=== PATIENT | male | born 1970 | race Caucasian/White ===

== ENCOUNTER 2017-03-05 23:26 | Observation (INO) | payer BC ==
[~2017-03-05] VITALS: Ht 180.3 cm; Wt 97.0 kg
--- NOTE | ~2017-03-05 | ECH ---
Transthoracic Echocardiography Report (TTE) Demographics Patient Name SID BROWNING Date of Study 03/06/2017 Patient Number [id number] Visit Number [id number] Date of 1970 Room Number 424 Accession Number [id number] Gender Male Age 47 year(s) Referring King Aaron Colin MD Microphone Operator Frida Rush [facility] Physician Selena Devlin MD Physician Interpreting King Aaron Colin MD [facility] Aide Physician Supervising Ordering Physician King Aaron Colin MD, MD/P Nurse Stress Audio Visual Project Manager Conclusions Summary Technically adequate exam. The estimated left ventricular ejection fraction is 65%. Mild to moderate left ventricular hypertrophy. Diastolic assessment reveals Grade I diastolic dysfunction. Procedure Type of Study TTE procedure:Echo Complete SF. Procedure Date Date: 03/06/2017 Start: 12:34 PM Technical Quality: Adequate visualization Indications:Chest pain and Coronary artery disease. Appropriate Use Criteria: 9 Height: 71 inches Weight: 213 pounds BSA: 2.17 m Rhythm: Within normal limits HR: 65 bpm BP: 119/74 mmHg Allergies - Codiene. M-Mode/2D Measurements LV Diastolic Dimension: 4.54 cm LV Systolic Dimension: 3.09 cm LV Septum Diastolic: 1.54 cm LV PW Diastolic: 1.23 cm AO Root Dimension: 2.85 cm Cardiac Output: 4.97 l/min LA Dimension: 3.92 cm Cardiac Index: 2.29 l/min*m LA volume index: 18 ml/m LVOT: 2.03 cm RV Base: 3.1 cm LVOT VTI: 23.62 cm RV Mid: 1.6 cm LV Stroke volume: 76.41 ml RV Length: 6.6 cm LV Stroke volume index: 35.21 ml/m TAPSE: 1.8 cm Doppler Measurements AV Peak Velocity: 1.4 m/s MV Peak E-Wave: 0.7 m/s AV Peak Gradient: 7.84 mmHg MV Peak A-Wave: 0.72 m/s AV Mean Gradient: 3.68 mmHg MV E/A Ratio: 0.97 LVOT Peak Velocity: 1.32 m/s MV P1/2t: 47.1 msec AV Area (Continuity):2.9 cm MV Deceleration Time: 178.2 msec MV Area (PHT): 4.67 cm PV Peak Velocity: 1.32 m/s PV Peak Gradient: 6.97 mmHg RA Area: 15.08 cm Findings Left Ventricle The left ventricle is normal in size . Mild to moderate left ventricular hypertrophy. Diastolic assessment reveals Grade I diastolic dysfunction. Right Ventricle Normal right ventricle structure and function. Left Atrium Normal left atrial size. Right Atrium Normal right atrial size. Mitral Valve Normal mitral valve structure and function. Aortic Valve Normal aortic valve structure and function. Tricuspid Valve Normal tricuspid valve structure and function. Pulmonic Valve Normal pulmonic valve structure and function. Pericardial Effusion No evidence of pericardial effusion. Miscellaneous Visualized portions of the aortic root and ascending aorta appear normal in size. Pleural Effusion No evidence of pleural effusion. Signature
--- NOTE | ~2017-03-05 | FD ---
ADMIT: 03/06/2017 RM/LOC: 424 [facility] MR#: [id number] [address] [address] SID BROWNING [address] [place] [address] Final Diagnosis SEX: M AGE: 47 : 1970 ADMISSION DATE: 03/06/2017 DISCHARGE DATE: 03/06/2017 FINAL DIAGNOSES: 1. Chest pain. 2. Coronary artery disease. 3. Gastroesophageal reflux disease. 4. Hypertension. 5. Hyperlipidemia. 6. Pre-diabetes. Dar Walters MD/ vdg JOB #: [id number] CC: Dar Walters MD, Attending Physician Ellie Xavier MD, Family Physician
[~2017-03-05 23:26] MED LIST: ASA CHILDREN'S81 MG PO; HABITROL DPS21 MG TD; LIPITOR DPS40 MG PO; LOPRESSOR DPS12.5 MG PO; NITROSTAT0.4 MG SL; PLAVIX75 MG PO; TYLENOL DPS325 MG PO
--- NOTE | 2017-03-06 16:12 | HP ---
ADMIT: 03/06/2017 RM/LOC: 424 [facility] MR#: [id number] [id number] [facility] [address] [place] [id number] SID BROWNING [address] [place] [address] History and Physical SEX: M AGE: 47 : 1970 DATE OF SERVICE: CHIEF COMPLAINT: Chest pain. HISTORY OF PRESENT ILLNESS: A 47-year-old male with chest pressure and stabbing pressure intermittently. Similar to the pain that he has had in the past with previous heart catheterization. This is not the same as his most recent non-STEMI though. That was much more pronounced pressures as someone was standing on him. He does smoke tobacco. He has had multiple stents back in August of 2015 and then May of 2016. He has had increasingly more severe chest pain. This is separate than his GERD symptoms and it is not reproducible by pressure on his chest by pushing. Therefore, he came to the ER, admitted for chest pain rule out. Chest pain is now resolved. Awaiting Cardiology consult for further direction. PAST MEDICAL HISTORY: 1. Hypertension. 2. Hyperlipidemia. 3. Coronary artery disease. MEDICATIONS: 1. Lipitor. 2. Metoprolol. 3. Plavix. 4. Aspirin. ALLERGIES: NO KNOWN MEDICAL ALLERGIES. FAMILY HISTORY: Positive coronary artery disease in multiple family members. SOCIAL HISTORY: Lives in [place]. He smokes tobacco. He does not drink or do drugs. He works. PHYSICAL EXAMINATION: VITAL SIGNS: Blood pressure 118/74, pulse 72, respiratory rate is 16, temperature is 96.7. GENERAL: Alert and oriented x3, in no acute distress. HEENT: Normocephalic and atraumatic. Extraocular muscles intact. Pupils equally round and responsive to light. No nasal discharge. NECK: Supple. HEART: Irregularly irregular rhythm and rate. LUNGS: Clear, but distant. ABDOMEN: Soft, nontender. EXTREMITIES: No clubbing or cyanosis. LABORATORY DATA: Sodium 141, potassium is 4, chloride is 106, bicarb is 26, BUN is 18, creatinine is 1, glucose 193, calcium is 8.3, AST is 38, ALT is 77, total protein 6.7, albumin is 3.7, alkaline phosphatase 118, bilirubin is 0.7, ADMIT: 03/06/2017 RM/LOC: 424 [facility] MR#: [id number] [address] [address] SID BROWNING [address] [place] [address] History and Physical SEX: M AGE: 47 : 1970 LDL of 31. Troponin continues to be negative less than 0.015. Hemoglobin is 15.4, white blood cells are 7, platelets 173. A1c is 6.3. ASSESSMENT AND PLAN: 1. Unstable angina. 2. Hypertension. 3. Hyperlipidemia. 4. Coronary artery disease. 5. Increased creatine phosphokinase. 6. Prediabetes. This is a 47-year-old male with cardiovascular risk factors with unstable angina. We will maintain him on n.p.o. status. Go ahead and get a repeat set of cardiac enzymes at noon. Cardiology is consulted and will direct further evaluation on this patient, stress test versus cath versus echo versus observation and medication adjustment. Also, increase his IV fluids little bit secondary to his increased CPK as well as we will go ahead and get some diabetic education secondary to his prediabetes. I discussed this plan with the patient, who expressed understanding, was in agreement and had no further questions. Dar Walters MD/ lele JOB #: [id number] CC: Dar Walters MD, Attending Physician Ellie Xavier MD, Family Physician
--- NOTE | 2017-03-06 22:59 | ER ---
ADMIT: 03/06/2017 RM/LOC: 424 [facility] MR#: [id number] [address] [facility] [address] [place], [place] [address] SID BROWNING [address] [place] [address] Emergency Room Report SEX: M AGE: 47 : 1970 DATE: 03/05/2017 TIME: 2325 Please refer to my T-sheet for complete H and P. HISTORY OF PRESENT ILLNESS: Briefly, the patient is a 47-year-old, who has been having chest pain for the last 3 days, more on than off. He has been on and off for the last 2 weeks. He has a known history of coronary disease. He has had 4 stents placed and multiple caths, he said about 6-7, the last was in December. Smokes half pack a day. Continues to smoke. The pain is a pressure across his chest, 5/10 when he arrived in the ER. PHYSICAL EXAMINATION: VITAL SIGNS: Stable. HEENT: Grossly normal. LUNGS: Clear. HEART: Regular. ABDOMEN: Soft. SKIN: No rash. EMERGENCY DEPARTMENT COURSE: EKG was sinus rhythm, nonspecific changes, rate 78. Chest x-ray negative. CBC normal, chemistries normal except potassium 3.6, glucose 133. His CK was 666. CK-MB 9.2, troponin was negative at this time. He was given aspirin and nitroglycerin, his pain was gone. I talked to Dr. Walters, will admit to the hospital. ASSESSMENT: 1. Chest pain/unstable angina. 2. Increased CK, CK-MB. 3. Known coronary artery disease. PLAN: Admit to the hospital. Nic Lynch MD/ lele JOB #: [id number] CC: Dar Walters MD, Attending Physician Ellie Xavier MD, Family Physician
[2017-03-07] MEDS ORDERED: PRILOSEC DPS20 MG PO (19:50)
[2017-03-07] MEDS ORDERED: NAPROSYN DPS500 MG PO (19:50)
--- NOTE | 2017-03-11 14:07 | CO ---
ADMIT: 03/06/2017 RM/LOC: 424 [facility] MR#: [id number] [id number] [facility] [address] [place] [id number] SID BROWNING [address] [place] [address] Consultation SEX: M AGE: 47 : 1970 DATE OF CONSULTATION: 03/06/2017 ATTENDING PHYSICIAN: Dar Walters MD CONSULTING PHYSICIAN: Aaron Garcia MD REASON FOR CONSULTATION: Chest pain. JOVANNY Schmidt dictating for Dr. Garcia. HISTORY OF PRESENT ILLNESS: The patient is a pleasant 47-year-old male, who I had the opportunity to consult for Cardiology regarding his chest pain. The patient has a personal history of coronary artery disease. He is status post CABG with four stent placements. He has a history of tobacco abuse, dyslipidemia, and hypertension. The patient states that he has had chest discomfort going on and off for the last two weeks, but it usually goes away within an hour. The patient states this last episode started three days ago, so he called his blood tester in [place], Dr. Luther and asked for some advice of what he should do. Dr. Luther informed him to drink some water and see if he had any relief with the chest discomfort. On Thursday, the chest discomfort slowly got worse, but he stuck it out and was hoping it would go away. The patient states that yesterday he went in to work and worked all day. 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 He admits after working all day the discomfort did not go away which made him nervous. He then decided to cancel his appointment with Dr. Luther and went into the ER instead. The patient states that he rated the pain as 6/10. He said that the pain radiated to his left arm in between his shoulder blades. Associated symptoms included shortness of breath and dizziness. He said he did not get any relief until he arrived in the emergency room when they gave him a cocktail of one nitroglycerin, four low- dose aspirin, Tylenol, and Mylanta. He admits that he is not sure which one gave him relief, but he got some relief out of that cocktail. The patient's cardiac enzymes were negative x3. His EKG showed nonspecific changes but a sinus rhythm. The patient admits that he has never had anything like this in the past, but the pain or discomfort is similar with a few new symptoms including shortness of breath and dizziness. PAST MEDICAL HISTORY: Significant for: 1. Hypertension. 2. Dyslipidemia. 3. Coronary artery disease, status post PCI with four stents placed. 4. Tobacco abuse. PAST SURGICAL HISTORY: Significant for: 1. PCI with four stents placed. 2. Appendectomy. 3. Elbow surgery. 4. Carpal tunnel release. ADMIT: 03/06/2017 RM/LOC: 424 [facility] MR#: [id number] [address] [place] [phone] SID BROWNING [address] [place] [address] Consultation SEX: M AGE: 47 : 1970 FAMILY HISTORY: Dad of a myocardial infarction in his early 50s. Brother of lymph node cancer around 59, but he also had stents and a pacemaker. Mother is living and she is 60 years old with type 2 diabetes. The patient denies a family history of stroke. SOCIAL HISTORY: The patient currently resides in [place], [place]. He is currently to his for 19 years. 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 His diet is a low-sodium diet. He consumes 8 to 10 cups of coffee, and three to four 20 ounce soda's per day. The patient also admits to drinking 1 to 2 alcoholic beverages per month. He has a 15-pack year smoking history, and he denies drug use. ALLERGIES: NO KNOWN DRUG ALLERGIES. MEDICATIONS: Home medications include: 1. Aspirin 81 mg p.o. daily. 2. Lipitor 80 mg p.o. at bedtime. 3. Lopressor 12.5 mg p.o. b.i.d. 4. Plavix 75 mg p.o. daily. REVIEW OF SYSTEMS: GENERAL: Per Dr. Garcia. Denies fever, chills, sweats, rash, or weight loss. The patient has tired easily for the last three days. EYES: Denies double vision, blurred vision, cataracts, or glaucoma. ENT: Denies hearing loss or problems with nose, mouth or throat. PULMONARY: Denies cough, sputum production, asthma, emphysema or bronchitis. Denies wakefulness at night. The patient admits to snoring very loudly and tiring first thing in the morning and has noticed this lately. GASTROINTESTINAL: Denies difficulty swallowing. No change in bowel habits. Denies dark or bloody stools. No history of ulcers, hiatal hernia, or gallbladder or liver disease. The patient admits to heartburn and acid reflux. GENITOURINARY: Denies dysuria, hematuria, nocturia, urinary tract infection, or kidney stones. Denies history of renal insufficiency or failure. MUSCULOSKELETAL: Denies history of arthritis or gout. The patient admits to muscle and joint pains. ENDOCRINE: Denies history of thyroid dysfunction or diabetes. HEMATOLOGIC: Denies history of anemia, easy bruising, or cancer. NEUROLOGIC: Denies chronic headaches, dizziness, syncope, stroke, seizures or numbness or tingling. PSYCHIATRIC: Denies history of mental illness or feelings of depression. PHYSICAL EXAMINATION: Per Dr. Garcia. VITAL SIGNS: Temperature 96.7, pulse 72, respirations 16, blood pressure 118/74, oxygen saturation is 94% on room air. GENERAL: The patient is alert and oriented x3. No acute distress. SKIN: [place], warm and dry. EYES: Sclerae clear. No xanthelasmas. ENT: Oral mucosa is pink and moist. No jugular venous distention or carotid bruits. ADMIT: 03/06/2017 RM/LOC: 424 [facility] MR#: [id number] 2620 [facility] [address] [place] [phone] SID BROWNING [address] [place] [address] Consultation SEX: M AGE: 47 : 1970 CHEST: Ache in the center to the left side of his chest, and admits that he is short of breath. LUNGS: Symmetrical expansion with coarse right lateral lung. HEART: Regular rate and rhythm. Normal S1, S2. No murmurs, rubs or gallops. ABDOMEN: Soft and nontender. MUSCULOSKELETAL: Gait is normal. EXTREMITIES: No edema. DIAGNOSTIC DATA: Sodium 141, potassium 4, chloride 106, bicarb 26, BUN is 18, creatinine is 1. Glucose is 103, cholesterol 104, triglyceride is 234, CK is 570, MB is 8.3, and troponin was negative 0.015 x 3. EKG revealed a sinus rhythm, RSR' in V1 and V2. Last echo revealed an ejection fraction of 60% and this was on 06/10/2016. ASSESSMENT AND PLAN: Per Dr. Garcia. 1. Chest pain. 2. Coronary artery disease. 3. Tobacco abuse. The patient has symptoms which are concerning and some which are not. We will check an echocardiogram today. We will also order a proton-pump inhibitor and NSAIDs. If the patient is doing well, we will check an outpatient stress test. If symptoms persist, we may need to repeat a heart catheterization. We will have the patient follow up with the [facility] in a few weeks. Thank you for the Cardiology consult. I have read and agreed with the documentation has been completed regarding this visit. By signing this record, I attest that the documentation was completed in my physical presence and is an accurate record of the encounter. MARY Schmidt Student / Aaron Garcia MD / lele JOB #: [id number] CC: Dar Walters MD, Attending Physician Ellie Xavier MD, Family Physician
== END 2017-03-06 16:02 | disposition home or self-care (01) ==
LOC: ER 23:26 → 4PCU 03-06 00:50
PROVIDERS: ADMIT Internal Medicine
DX: R07.9 Chest pain, unspecified (principal); I25.10 Atherosclerotic heart disease of native coronary artery without angina pectoris; K21.9 Gastro-esophageal reflux disease without esophagitis; I10 Essential (primary) hypertension; E78.5 Hyperlipidemia, unspecified; R73.03 Prediabetes; Z79.899 Other long term (current) drug therapy; Z79.82 Long term (current) use of aspirin; Z87.891 Personal history of nicotine dependence

== ENCOUNTER → 2017-03-09 | Outpatient (CLI) | payer BC ==
[~2017-03-09] MED LIST changes: +NAPROSYN DPS500 MG PO; +PRILOSEC DPS20 MG PO
== END | disposition home or self-care (01) ==
DX: I25.10 Atherosclerotic heart disease of native coronary artery without angina pectoris (principal); R07.9 Chest pain, unspecified

== ENCOUNTER 2017-03-11 06:06 | Day surgery (SDC) | payer BC | END 2017-03-11 08:20 | disposition home or self-care (01) | DX: I25.10 Atherosclerotic heart disease of native coronary artery without angina pectoris (principal); Z53.9 Procedure and treatment not carried out, unspecified reason; E78.5 Hyperlipidemia, unspecified; I10 Essential (primary) hypertension; F17.200 Nicotine dependence, unspecified, uncomplicated; Z88.6 Allergy status to analgesic agent ==

== ENCOUNTER 2017-03-13 07:02 | Observation (INO) | payer BC ==
[~2017-03-13] VITALS: Ht 180.3 cm; Wt 98.4 kg
--- NOTE | ~2017-03-13 | CATH ---
Cardiac Diagnostic + PCI Report Demographics Patient Name NALLELY Julio Gender Male Date of 1970 Age 47 year(s) Patient Number [id number] Date of Study 03/13/2017 Visit Number [id number] Room Number 422 Corporate ID Ht 180.34 cm Wt 98.88 kg Accession Number [id number] BSA 2.19 m Referring Selena Devlin Primary Physician Physician MD Tra Sims MD Secondary Physician Physician Joe Diagnostic Levi THOMAS Assisting Physician Physician Joe Interventional Levi THOMAS Physician Computer Lab Para Professional Physician Joe Findings and Conclusions Diagnostic Findings and Conclusion Intermediate mLAD lesion - 60-70%. Widely patent stents in LM and Circ. Chronically occluded RCA Diagnostic Recommendations iFR/FFR of mLAD Interventional Findings and Conclusion FFR showed osbtructive flow in mLAD, results 0.76 with Adenosine. Proceeded with stenting of 70% mLAD with 3.0x12 Synergy YANNI and post dilated to 3.25mm, with good results and 0% residual stenosis. Interventional Recommendations Ongoing risk factor modification. Dual antiplatelet therapy for at least 1 year. Procedure Description The patient was brought to the diagnostic cardiac catheterization laboratory in the fasting, non-sedated state. Informed consent was obtained in the written and verbal form after the risks and benefits were explained. The patient had no further questions and agreed to proceed. The planned puncture-incision site(s) were shaved and prepped with ChloraPrep and draped in the usual sterile manner. Conscious sedation, supplemental oxygen, and pain control medications were delivered by a registered nurse under physician guidance. Surface ECG rhythm, blood pressure measurement, and pulse oximetry were monitored throughout the procedure. Arterial access. The right radial access site was infiltrated with lidocaine. The right radial artery was entered with the Seldinger technique. A 6F radial sheath was advanced into the vessel and used for catheter placement. Selective left coronary angiography. A 6F Tig catheter was advanced into the left coronary vessel ostium under Fluoroscopic guidance. Then a JL3.5 catheter was advanced into left coronary, which enganged better. Contrast was injected by hand. Images were obtained in multiple projections. Selective right coronary angiography. A 6F FL3.5 catheter was advanced into the right coronary vessel ostium under fluoroscopic guidance. Contrast was injected by hand. Images were obtained in multiple projections. Left heart catheterization. A 6F pigtail catheter was advanced across the aortic valve to the left ventricle under fluoroscopic guidance. Resting hemodynamics were obtained. iFR measurement was performed. The vessel was entered with a guiding catheter. The iFR wire was normalized and then advanced across the lesion. Measurements were taken. Due to the results being borderline, FFR was performed. FFR measurement was performed. Maximum hyperemia was achieved using adenosine. Angioplasty and Stent Placement: A FCL3.5 guiding catheter was used to intubate the vessel. The FFR wire was used to cross the lesion. A 3.0x8 Emerge balloon catheter was placed across the lesion and inflated. The balloon catheter was then removed. A Synergy 3.0x12 Drug Eluting Stent was placed and inflated. The stent balloon catheter was removed. A 3.25x8 NC Emerge balloon catheter was placed across the lesion and inflated. The balloon catheter was then removed. Post placement angiograms were performed. FFR measurement was performed post deployment. Maximum hyperemia was achieved using adenosine. Arterial artery hemostasis was achieved using 11 cc air in a TR band. The patient was transferred to the PCU nursing floor via cart accompanied by a film laboratory technician nurse. The patient left the laboratory in stable condition. Diagnostic Cath Status: Elective Procedure Procedure Type Diagnostic procedure:Angiography:, Coronary Angios w/[facility] PCI procedure:Drug Eluting Coronary Stent:, LAD, Additional Imaging:, FFR/iFR:, Initial Vessel Indications: Chest discomfort, Positive Nuclear: Intermediate, Hyperlipidemia, Hypertension, CAD and Tobacco use-prior. The procedure was explained in detail to the patient. Risks, complications and alternative treatments were reviewed. Written consent was obtained. Medications Reviewed with Patient prior to Procedure. Complications: No Complication. Angiographic Findings Dominance: Left Cardiac Arteries and Lesion Findings LMCA: Normal (0% Stenosis).There is a previous stent on LMCA Proximal subsection showing wide patency. LAD: Abnormal. Lesion on Mid LAD: 70% stenosis 12 mm length reduced to 0%. Pre procedure JUAN CARLOS III flow was noted. Post Procedure JUAN CARLOS III flow was present. The guidewire cross was successful.Culprit lesion. FFR + + + + !FFR !Stage/Medication !Dosage ! + + + + !42.5 ! ! ! + + + + Treatment results:Interventional treatment was successful. Devices used - [employer]. Number of passes: 1. - CATH BAL RX EMERGE 3.0X8. 1 inflation(s) to a max pressure of: 10 amos. - CATH STENT SYNERGY 3.0 X 12. 1 inflation(s) to a max pressure of: 16 amos. - CATH BAL RX NC EMERGE 3.25X8. 1 inflation(s) to a max pressure of: 16 amos. Lesion on 2nd Diag: Proximal subsection.70% stenosis . Comments:Small vessel LCx: Abnormal.There is a previous stent on Mid CX showing wide patency. There is a previous stent on Dist CX showing wide patency. Lesion on Prox CX: 30% stenosis . RCA: Abnormal. Lesion on Mid RCA: 100% stenosis . Coronary Tree Procedure Data Procedure Date Date: 03/13/2017Start: 07:59 AMEnd: 09:22 AM Entry Locations - Percutaneous access was performed through the Right Radial artery (Primary location). A 6 Fr sheath was inserted. Hemostasis was successfully obtained using a TR band. Procedure Medications Order and Administration + + +---------+-------+ !Time !Medication !Dosage !Route ! + + +---------+-------+ !03/13/2017 !Versed !2 mg !I.V. ! !07:58 AM ! ! ! ! + + +---------+-------+ !03/13/2017 !Fentanyl !50 mcg !I.V. ! !07:58 AM ! ! ! ! + + +---------+-------+ !03/13/2017 !Sodium Chloride !10 ml !I.V. ! !07:58 AM ! ! ! ! + + +---------+-------+ !03/13/2017 !Versed !1 mg !I.V. ! !08:02 AM ! ! ! ! + + +---------+-------+ !03/13/2017 !Fentanyl !25 mcg !I.V. ! !08:02 AM ! ! ! ! + + +---------+-------+ !03/13/2017 !Versed !1 mg !I.V. ! !08:09 AM ! ! ! ! + + +---------+-------+ !03/13/2017 !Fentanyl !25 mcg !I.V. ! !08:09 AM ! ! ! ! + + +---------+-------+ !03/13/2017 !Oxygen !2 l/min !NC ! !08:16 AM ! ! ! ! + + +---------+-------+ !03/13/2017 !SF Radial Cocktail: 200mcg Nitro, 2.5 mg! !I.A. ! !08:20 AM !Verapamil, 5000u Heparin ! ! ! + + +---------+-------+ !03/13/2017 !Versed !2 mg !I.V. ! !08:21 AM ! ! ! ! + + +---------+-------+ !03/13/2017 !Fentanyl !25 mcg !I.V. ! !08:21 AM ! ! ! ! + + +---------+-------+ !03/13/2017 !Heparin (ACC_3) !3000 !I.V. ! !08:33 AM ! !units ! ! + + +---------+-------+ !03/13/2017 !Nitroglycerin !200 mcg !I.C. ! !08:50 AM ! ! ! ! + + +---------+-------+ !03/13/2017 !Versed !2 mg !I.V. ! !08:51 AM ! ! ! ! + + +---------+-------+ !03/13/2017 !Fentanyl !25 mcg !I.V. ! !08:51 AM ! ! ! ! + + +---------+-------+ !03/13/2017 !Sodium Chloride !20 ml !I.V. ! !08:51 AM ! ! ! ! + + +---------+-------+ !03/13/2017 !Nitroglycerin !200 mcg !I.C. ! !08:56 AM ! ! ! ! + + +---------+-------+ !03/13/2017 !Heparin (ACC_3) !2000 !I.V. ! !09:04 AM ! !units ! ! + + +---------+-------+ Devices Used - ACATH 6FR FL3.5 CATHETER 100CMwas used for:Left coronary angiography. - ACATH 6FR PIG 145 110CM CATHETERwas used for:LV Pressures. - AGUIDE CATHETER 6FR FCL 3.5 100CMwas used for:LAD Intervention. Contrast Material - Isovue 80902 ml - Isovue 79957 ml Fluoroscopy Time: Diagnostic: 10:42 minutes. Total: 10:42 minutes. Fluoroscopy Dose: Diagnostic: 1157 mGy. Total: 1157 mGy. Estimated Blood Loss: 10 ml. Medical History Performed Procedures and Imaging Results - Stress testing with SPECT MPIwas performed on 03/09/2017. Results were: Positive. Risk/Extent of ischemia was: Intermediate risk. Allergies - Codiene. - Codiene. Risk Factors The patient risk factors include:prior PCI;hypercholesterolemia, hypertension, family history of premature CAD appeared at age 50, last creatinine: 1 mg/dl, creatinine clearance: 127.72 ml/min, dyslipidemia and former tobacco use. Admission Data Admission Date: 03/13/2017 Admission Time: 09:32 AM Insurance Payors: Private health insurance. Clinical Evaluation Leading to Procedure Diagnosed on 03/13/2017 07:00 AM. - The patient's CAD presentation was assessed as: Unstable angina. Hemodynamics Condition: Rest O2 Consumption: Estimated: 264.13Heart Rate: 71 bpm Pressures (mmHg) +-----+ + !Site !Pressure ! +-----+ + !AO !101/75 (88) ! +-----+ + !LV !110/3 ,13 ! +-----+ + !AO !105/69 (87) ! +-----+ + !LV !107/4 ,10 ! +-----+ + Valve Gradients and Areas + +---------+---------+---------+ +---------+ + !Valve !Peak !Mean !Area !Index !Flow !Source ! + +---------+---------+---------+ +---------+ + !Aortic !0 !0 ! ! ! ! ! + +---------+---------+---------+ +---------+ + !Aortic !0 !0 ! ! ! ! ! + +---------+---------+---------+ +---------+ + Shunts Oxygen Values O2 Capacity 209.44 O2 Consumption 264.13 Signatures
--- NOTE | 2017-03-31 13:04 | DS ---
ADMIT: 03/13/2017 RM/LOC: [address] [id number] [id number] [address] [facility] [address] [place] [id number] SID BROWNING [address] [place] [address] Discharge Summary SEX: M AGE: 47 : 1970 ADMISSION DATE: 03/13/2017 DISCHARGE DATE: 03/14/2017 ADMISSION DIAGNOSIS: Unstable angina. DISCHARGE DIAGNOSES: 1. Unstable angina, status post stenting of the LAD. 2. History of coronary artery disease, status post coronary artery bypass graft in the past, and had a left main stent. 3. Hypertension. 4. Dyslipidemia. 5. Chronic tobacco use. It is unclear about CABG anatomy. DISCHARGE MEDICATIONS: 1. Aspirin 81 once a day. 2. Lipitor 80 mg once a day. 3. Lopressor 12.5, two times a day. 4. Plavix 75 once a day. HOSPITAL ADMISSION COURSE AND STAY: Mr. Sid Browning came to the hospital with worsening angina. He had left heart catheterization done by Dr. Sims, which showed left main stent was patent, mid LAD 70% lesion, and the patient underwent 3.0 x 12 Synergy stent placement, and the patient tolerated procedure well. He has a chronically occluded RCA which is 100%, and he has a previous left circumflex stents also. FOLLOWUP: The patient will follow up with [facility] comic book artist, Dr. Luther, in two weeks. Halley Live MD/ lele JOB #: [id number] CC: Aaron Garcia MD, Attending Physician FAMILY PHYSICIAN, Family Physician
== END 2017-03-14 11:56 | disposition home or self-care (01) ==
LOC: SSS 07:02 → 4PCU 09:32 → SSS 14:09 → 4PCU 03-14 11:56
PROVIDERS: ADMIT Internal Medicine Cardiovascular Disease
DX: I25.110 Atherosclerotic heart disease of native coronary artery with unstable angina pectoris (principal); I10 Essential (primary) hypertension; E78.5 Hyperlipidemia, unspecified; Z79.82 Long term (current) use of aspirin; Z72.0 Tobacco use; Z95.1 Presence of aortocoronary bypass graft; Z79.899 Other long term (current) drug therapy